=== PATIENT | female | born 1980 | race Two or more races ===

== ENCOUNTER 2016-08-20 11:38 | Emergency (ER) | payer OTHER ==
[2016-08-20] MEDS ORDERED: DIPHENHYDRAMINE HCL 50 MG/1 ML VIAL ONE (12:11)
[2016-08-20] MEDS ORDERED: METHYLPRED SOD SUCCINATE 125 MG VIAL ONE (12:11)
[2016-08-20] MEDS ORDERED: LACTATED RINGERS 1,000 ML ONE (12:12)
[2016-08-20 12:24] LABS: ABSOLUTE NEUTROPHIL COUNT 0.7 K/mm3 (1.8-7.7); BASO % 0.7 % (0.2-1.0); EOS # 0.1 (0.0-0.5); EOS % 7.8 % (0.9-2.9); HEMATOCRIT 39.4 % (37.0-47.0); HEMOGLOBIN 13.4 gm/l (12.0-16.0); LYMPH # 0.5 (1.0-4.8); MEAN CELL VOLUME 86.4 fl (81.0-99.0); MEAN CORPUSCULAR HEMOGLOBIN 29.4 pg (27.0-31.0); MONO # 0.1 (0.0-0.8); MONO % 9.9 % (4-12); NEUT % 47.6 % (43-75); PLATELET COUNT 99 K/mm3 (130-400); RED CELL DISTRIBUTION WIDTH 12.4 % (11.5-14.5)
[2016-08-20 12:26] LABS: SPECIFIC GRAVITY 1.015 (1.001-1.030); URINE BILIRUBIN NEGATIVE (NEGATIVE); URINE BLOOD NEGATIVE (NEGATIVE); URINE GLUCOSE (UA) NEGATIVE (NEGATIVE); URINE LEUKOCYTE ESTERASE TRACE (NEGATIVE); URINE NITRITE NEGATIVE (NEGATIVE); URINE PROTEIN 1+ (NEGATIVE); URINE UROBILINOGEN 1 mg/dL (0-1 mg/dl)
[2016-08-20 12:36] LABS: ALB/GLOB RATIO 1.3 (>1.0); ALBUMIN 3.7 gm/dL (3.5-5.7); CALCIUM 8.5 mg/dL (8.6-10.3); URINE APPEARANCE SL CLOUDY; URINE COLOR YELLOW
[2016-08-20 12:37] LABS: URINE BACTERIA TRACE; URINE EPITHELIAL CELLS >25 /hpf; URINE MUCUS 1+; URINE RBC RARE /hpf; URINE WBC RARE /hpf
[2016-08-20] MEDS ORDERED: KETOROLAC TROMETHAMINE 15 MG/ML VIAL ONE (13:12)
[2016-08-20 13:19] LABS: BAND 6 % (0-10); BASOPHIL 1 % (0-1); EOSINOPHIL 9 % (1-3); LYMPHOCYTE 30 % (15-45); MONOCYTE 15 % (4-12); NEUTROPHILS 39 % (43-75); TOTAL CELLS COUNTED 100
[2016-08-20 13:20] LABS: PLATELET ESTIMATE DECREASED (NORMAL)
== END 2016-08-20 14:59 | disposition home or self-care (01) ==
LOC: ED 11:38
DX: L23.9 Allergic contact dermatitis, unspecified cause (principal); Z88.1 Allergy status to other antibiotic agents
CPT/HCPCS: 83605; 85025; 82550; 80053; 81001; 96375 ×2; 99283 ×2; 96374; J1200; J2930; J1885; J7120